=== PATIENT | female | born 1985 | race Caucasian/White ===

== ENCOUNTER 2022-08-26 17:02 | Emergency (ER) | payer OTHER ==
[~2022-08-26] VITALS: Ht 157.5 cm; Wt 78.0 kg
[2022-08-26] MEDS ORDERED: SODIUM CHLORIDE 0.9% 1,000 ML IV ONE (17:30)
[2022-08-26] MEDS ORDERED: ASPIRIN 81MG TABLET PO ONE (17:30)
[2022-08-26 17:45] LABS: BASOPHILS % 0.4 % (0.0-2.0); EOSINOPHILS % 2.4 % (0.0-5.0); HEMATOCRIT. 38.2 % (36.0-48.0); HEMOGLOBIN. 13.3 g/dL (12.0-16.0); LYMPHOCYTES % 27.5 % (20.0-50.0); MEAN CORPUSCULAR HEMOGLOBIN 30.6 pg (28.0-32.0); MEAN CORPUSCULAR VOLUME 87.8 fL (81.0-99.0); MEAN PLATELET VOLUME 8.7 fl (7.4-10.4); NEUTROPHILS % 60.7 % (40.0-76.0); PLATELET 243 x1000/uL (130-400); RED BLOOD CELL COUNT 4.36 mill/uL (4.2-5.4); RED CELL DISTRIBUTION WIDTH 13.6 % (11.6-14.6)
[2022-08-26 17:52] LABS: CHLORIDE 107 mEq/L (98-107)
[2022-08-26 21:09] LABS: T4 FREE 1.07 ng/dL (0.76-1.46)
[2022-08-26 22:58] VITALS: BP 132/71
== END 2022-08-26 23:01 | disposition home or self-care (01) ==
LOC: ER 17:02
DX: R00.2 Palpitations (principal); R06.02 Shortness of breath
CPT/HCPCS: 36415; 71045; 71275; 80053; 81025; 83880; 84439; 84443; 84484; 85025; 85379; 93005; 96360; 96361; 99285; J7030; Z7610